=== PATIENT | female | born 1990 | race African-American/Black ===

== ENCOUNTER 2024-02-02 12:31 | Emergency (ER) | payer BC, SELFPAY ==
[2024-02-02 12:33] VITALS: BP 144/95
[2024-02-02 12:48] LABS: % Basophils 0.4 % (0-2); % Eosinophils 2.1 % (0-6); % Immature Granulocytes 0.3 % (0-0.5); % Lymphocytes 23.3 % (20.5-51.1); % Monocytes 5.8 % (1.7-9.3); % Neutrophils 68.1 % (42.2-75.2); Absolute Eosinophils 0.2 10^3/uL (0-0.7); Absolute Lymphocytes 1.7 10^3/uL (1.2-3.4); Absolute Monocytes 0.4 10^3/uL (0.1-0.6); Absolute Neutrophils 4.9 10^3/uL (1.4-6.5); Hematocrit 38.1 % (37.0-47.0); Hemoglobin 12.7 g/dL (12.0-16.0); Mean Corp Hgb Conc. 33.3 g/dL (33.0-37.0); Mean Corpuscular Hgb 26.1 pg (27.0-31.0); Mean Corpuscular Volume 78.4 fL (81.0-99.0); Mean Platelet Volume 9.3 fL (7.4-10.4); Nucleated Red Blood Cells % 0 %; Platelet Count 346 10^3/uL (130-400); Red Blood Cell Count 4.86 10^6/uL (4.20-5.40); Red Cell Dist. Width 12.8 % (11.5-14.5); White Blood Cell Count 7.2 10^3/uL (4.8-10.8)
[2024-02-02 13:03] LABS: HCG, Serum Qualitative Screen Negative
[2024-02-02 13:07] LABS: ALT (SGPT) 15 U/L (0-35); AST (SGOT) 21 U/L (14-36); Albumin 4.7 g/dl (3.5-5.0); Alkaline Phosphatase 66 U/L (38-126); Blood Urea Nitrogen 11 mg/dl (7-17); Calcium 9.5 mg/dl (8.4-10.2); Carbon Dioxide 26 mmol/L (22-30); Chloride 104 mmol/L (98-107); Glucose 103 mg/dl (70-99); Sodium 138 mmol/L (135-145); Total Bilirubin 0.8 mg/dl (0.2-1.3); Total Protein 7.6 g/dl (6.3-8.2); eGFR > 60.00
--- NOTE | 2024-02-02 13:25 | ED.GENMED ---
History of Present Illness
<Leelee Helton PA-C - Last Filed: 02/03/24 09:01>
General
Chief Complaint: Vaginal Bleeding
Source: patient
Exam Limitations: none
Time Seen by Provider: 02/02/24 13:13
History of Present Illness
History of Present Illness:
33yoF with a history of hypertension presenting for evaluation of vaginal bleeding. She has been bleeding for 10 days straight. Her bleeding is variable but she is currently changing her pads 3-4x daily. She had a normal menses for a week earlier in
the month, stopped bleeding for a week, and then started bleeding again 10 days ago. She reports having normal menstrual cramps without any severe or unusual pain. She denies any dizziness, syncope, chest pain, shortness of breath, vaginal
discharge, fevers. She is here because she is going on a trip to [facility] in 5 days and wants to make sure everything is okay before she leaves. She recently moved to the area and [place] not have an [place]BGYN locally. She had an IUD removed in September
and she has had several normal periods since then. No personal or family history of bleeding disorders.
Past History
<Leelee Helton PA-C - Last Filed: 02/03/24 09:01>
Past History
ED Past Medical History: HTN
Review of Systems
<Leelee Helton PA-C - Last Filed: 02/03/24 09:01>
Review of Systems
Respiratory: Denies trouble breathing
Cardiac: Denies chest pain or syncope
: Reports bleeding (vaginal); Denies dysuria or discharge
Neurological: Denies dizzy
Phy Exam
<Leelee Helton PA-C - Last Filed: 02/03/24 09:01>
General Physical Exam
General Presentation: well appearing and no apparent distress
General age: appears stated age
General Skin: warm and dry
General Habitus: normal
General Mental: alert
General Hydration: appears well hydrated
Cardiovascular Exam
Cardiovascular Exam: regular rate/rhythm
Pulmonary Exam
Pulmonary Exam: lungs clear and no respiratory distress
Gastrointestinal Exam
Gastrointestinal Exam: non tender and soft
Genitourinary Exam Female
Vaginal Exam: blood (Mild bleeding noted, no clots. Cervix otherwise appears normal. No CMT.)
Neurological Exam
Neurological Exam: alert
Karen Coma Scale
Eye Opening: Spontaneous
Verbal Response: Oriented
Motor Response: Obeys Commands
GCS Total Score: 15
<Barron Arevalo MD - Last Filed: 02/02/24 16:37>
Karen Coma Scale
GCS Total Score: 15
Course
<Leelee Helton PA-C - Last Filed: 02/03/24 09:01>
Orders/Labs/Results
Orders:
Orders
02/02/24 12:36
Test Result ONCE
02/02/24 12:39
Type+Screen Urgent
CMP [Comprehensive Metabolic Panel] Urgent
HCG, Serum Qualitative Screen Urgent
02/02/24 12:40
Complete Blood Count/With Diff Urgent
02/02/24 13:46
US Pelvis W Transvag Combined Urgent
Comment:
Reason For Exam: Vaginal bleeding x 10 days
Abnormal Lab Results
02/02/24 02/02/24
12:39 12:40
MCV 78.4 L fL
(81.0-99.0)
MCH 26.1 L pg
(27.0-31.0)
Glucose 103 H mg/dl
(70-99)
02/02/24 12:40
02/02/24 12:39
Vital Signs
Initial and Last Documented VS:
Initial Vital Signs
Temp Pulse Resp BP Pulse Ox
100.2 F 99 16 144/95 100
02/02/24 12:33 02/02/24 12:33 02/02/24 12:33 02/02/24 12:33 02/02/24 12:33
Last Documented Vital Signs
Temp Pulse Resp BP Pulse Ox
100.2 F 99 16 144/95 100
02/02/24 12:33 02/02/24 12:33 02/02/24 12:33 02/02/24 12:33 02/02/24 12:33
<Barron Arevalo MD - Last Filed: 02/02/24 16:37>
Orders/Labs/Results
Orders:
Orders
02/02/24 12:36
Test Result ONCE
02/02/24 12:39
Type+Screen Urgent
CMP [Comprehensive Metabolic Panel] Urgent
HCG, Serum Qualitative Screen Urgent
02/02/24 12:40
Complete Blood Count/With Diff Urgent
02/02/24 13:46
US Pelvis W Transvag Combined Urgent
Comment:
Reason For Exam: Vaginal bleeding x 10 days
Abnormal Lab Results
02/02/24 02/02/24
12:39 12:40
MCV 78.4 L fL
(81.0-99.0)
MCH 26.1 L pg
(27.0-31.0)
Glucose 103 H mg/dl
(70-99)
02/02/24 12:40
02/02/24 12:39
Vital Signs
Initial and Last Documented VS:
Initial Vital Signs
Temp Pulse Resp BP Pulse Ox
100.2 F 99 16 144/95 100
02/02/24 12:33 02/02/24 12:33 02/02/24 12:33 02/02/24 12:33 02/02/24 12:33
Last Documented Vital Signs
Temp Pulse Resp BP Pulse Ox
100.2 F 99 16 144/95 100
02/02/24 12:33 02/02/24 12:33 02/02/24 12:33 02/02/24 12:33 02/02/24 12:33
<Leelee Helton PA-C - Last Filed: 02/03/24 09:01>
MDM/Problems Addressed
Differential Diagnosis Includes:
33yoF here with vaginal bleeding x 10 days. Using 3-4 pads/day. No presyncope or syncope. No CP/SOB. She is well appearing and hemodynamically stable. Abdominal exam is benign. Mild vaginal bleeding noted on speculum exam. Differential diagnosis
includes but is not limited to: dysfunctional uterine bleeding, miscarriage, ectopic , anemia
Initial ED plan: Labs obtained in triage. Hemoglobin normal at 12.7. HCG negative. Will obtain pelvic ultrasound.
<Leelee Helton PA-C - Last Filed: 02/03/24 09:01>
*Critical Care Note
Total Time (30-74mins, 75-104mins- exclusive of procedures): Not Applicable
<Leelee Helton PA-C - Last Filed: 02/03/24 09:01>
Update Note
Update Note:
Patient signed out to Dr. Arevalo awaiting ultrasound results.
<Barron Arevalo MD - Last Filed: 02/02/24 16:37>
Update Note
Update Note:
Patient signed out to Dr. Arevalo awaiting ultrasound results. Ultrasound shows small pocket fibroids. Clinically stable for discharge to follow-up
ED Attending Note
<Leelee Helton PA-C - Last Filed: 02/03/24 09:01>
-
Portions of this chart may have been created with voice recognition software.� Occasional wrong word or��sound alike� substitutions may have occurred due to the inherent limitations of voice recognition software.
<Barron Arevalo MD - Last Filed: 02/02/24 16:37>
ED Attending Note
Patient seen and examined by attending physician: Yes
I performed the substantive portion of visit, reviewed & personally made and approve the management plan that is documented in note by myself or TERRANCE.: Yes
ED Attending Note:
Abnormal vaginal bleeding for 10 days. Relatively light. 2 or 3 tampons per day. Minimal cramping. Last menstrual was 2 weeks ago. No other symptoms.
On exam patient is nontoxic in no distress. Warm and dry. Perfusing well. No respiratory distress. No obvious abdominal tenderness rebound or guarding.
Labs were reviewed. Pelvic exam was done by the physicians assistant merchandiser. Ultrasound pending. Hemodynamically stable. No indication for emergent surgical treatment. If ultrasound is stable we will manage conservatively to follow-up with [facility]. Do
not feel hormonal therapy is warranted at this time.
Discharge Plan
Departure
Patient Disposition: Home (Routine Discharge)
Date of Disposition: 02/02/24
Time of Disposition: 16:36
Patient with high blood pressure during this ER visit?: Yes
Discharge Problem:
Dysfunctional uterine bleeding, Small uterine fibroids
Instructions: Uterine Fibroids (DC), BLOOD PRESSURE
Referrals:
Lissette Klein MD [Family Provider] -
Darcy Queen MD [Active] - Next open appointment
Activity Restrictions/Additional Instructions:
Call [facility] for follow-up
Return with increased bleeding pain fever or any other concerning symptoms
Interventions
Interventions:
*General Assessment Last Done: 02/02/24 12:33
*ED COVID-19 Vaccine History Last Done: 02/02/24 12:33
*Nursing Disposition Last Done: 02/02/24 16:48
ED-Female Genitourinary Assessment Last Done: 02/02/24 14:15
Discharge Date and Time
Discharge Date/Time: 02/02/24 16:48
Print Language: SINHALA
== END 2024-02-02 16:48 | disposition home or self-care (01) ==
LOC: EMR 12:31
PROVIDERS: Emergency Medicine; EMERGENCY PHYSICIAN Emergency Medicine; FAMILY PHYSICIAN Student in an Organized Health Care Education/Training Program
DX: D25.9 Leiomyoma of uterus, unspecified (principal); N93.8 Other specified abnormal uterine and vaginal bleeding; I10 Essential (primary) hypertension
CPT/HCPCS: 99284; 76830; 76856; 80053; 84703; 85025; 86850; 86900; 86901